=== PATIENT | male | born 1945 | race Two or more races ===

== ENCOUNTER 2019-08-01 13:18 | Emergency (ER) | payer OTHER ==
[~2019-08-01] VITALS: Ht 170.2 cm; Wt 90.7 kg
[~2019-08-01 13:18] MED LIST: ATENOLOL50 MG PO; AVALIDE 150-12.1 TA1 PO; AVANDAMET 2 MG/1 TA1 PO; GLIPIZIDE5 MG PO; JANUMET 50-1,1 UDTAB
== END 2019-08-01 19:13 | disposition home or self-care (01) ==
LOC: ER 13:18
DX: S30.0XXA Contusion of lower back and pelvis, initial encounter (principal); S00.03XA Contusion of scalp, initial encounter; H57.89 Other specified disorders of eye and adnexa; T39.8X5A Adverse effect of other nonopioid analgesics and antipyretics, not elsewhere classified, initial encounter; W01.198A Fall on same level from slipping, tripping and stumbling with subsequent striking against other object, initial encounter; Y93.89 Activity, other specified; Y92.89 Other specified places as the place of occurrence of the external cause; Y92.238 Other place in hospital as the place of occurrence of the external cause; Y99.8 Other external cause status